=== PATIENT | male | born 1990 | race African-American/Black ===

== ENCOUNTER 2017-01-31 19:21 | Emergency (ER) | payer OTHER ==
[~2017-01-31 19:21] MED LIST: VOLTAREN75 MG PO
[2017-01-31 19:51] LABS: URINE SOURCE CLEAN CATCH
[2017-01-31 19:58] LABS: URINE APPEARANCE CLEAR; URINE BILIRUBIN NEG (NEG); URINE BLOOD NEG (NEG); URINE COLOR DK YELLOW; URINE GLUCOSE NEG (NEG); URINE KETONE NEG (NEG); URINE LEUKOCYTE ESTERASE NEG (NEG); URINE NITRATE NEG (NEG); URINE PROTEIN TRACE (NEG); URINE SPECIFIC GRAVITY 1.035 (1.003-1.035)
[2017-01-31 20:02] LABS: CULTURE INDICATED? NO
[2017-02-05 12:09] LABS: CHLAMYDIA TRACH Not Detected (Not Detected); N GONOR Not Detected (Not Detected)
== END 2017-01-31 20:30 | disposition home or self-care (01) ==
LOC: CED 19:21 → CFTX 19:21
PROVIDERS: Nurse Practitioner
DX: A59.00 Urogenital trichomoniasis, unspecified (principal); F17.200 Nicotine dependence, unspecified, uncomplicated
CPT/HCPCS: 81003; 87491; 87591; 96372; 99283; J0696